=== PATIENT | female | born 1990 | race Native Hawaiian/Other Pacific Islander ===

== ENCOUNTER 2017-04-14 12:26 | Emergency (ER) | payer OTHER ==
[2017-04-14 12:47] VITALS: BP 122/83; PULSE 66; RESP 20; TEMP 98.4; O2SAT 100
--- NOTE | 2017-04-14 13:05 | C.PDOC ---
History Of Present Illness 26 year old female presents to ED with complaints of laceration to left thumb. She states she was using knife and accidentally cut tip of her finger. She is not UTD with Tetanus. She applied towel to control bleeding. Denies any numbness or limited movement to finger. Time Seen by Provider: 04/14/17 12:48 Chief Complaint (Nursing): Finger,Hand,&Wrist History Per: Patient History/Exam Limitations: no limitations Onset/Duration Of Symptoms: Sudden Onset Past Medical History Reviewed: Historical Data, Nursing Documentation, Vital Signs Vital Signs: Last Vital Signs Temp 98.4 F 04/14/17 12:40 Pulse 66 04/14/17 12:40 Resp 20 04/14/17 12:40 BP 122/83 04/14/17 12:40 Pulse Ox 100 04/14/17 13:05 - Medical History PMH: Anxiety, Depression Surgical History: No Surg Hx Family History: States: Unknown Family Hx - Social History Hx Alcohol Use: No Hx Substance Use: No - Immunization History Hx Tetanus Toxoid Vaccination: No Hx Influenza Vaccination: No Hx Pneumococcal Vaccination: No Review Of Systems Except As Marked, All Systems Reviewed And Found Negative. Skin: Positive for: Other (laceration) Physical Exam - Physical Exam Appears: Non-toxic, No Acute Distress Skin: Warm, Dry, Other (0.5cm linear angled laceration to the distal left tip of thumb fingernail and lateral nail border, nail attached and no active bleeding) Head: Atraumatic, Normacephalic Eye(s): bilateral: Normal Inspection, EOMI Neck: Normal ROM Chest: Symmetrical Respiratory: Normal Breath Sounds Extremity: Normal ROM, No Tenderness, No Deformity, No Swelling Neurological/Psych: Oriented x3, Normal Speech Gait: Steady ED Course And Treatment O2 Sat by Pulse Oximetry: 100 Medical Decision Making Medical Decision Making: Patient with small laceration to distal tip of nail plate of left thumb, no active bleeding. Suture repair not indicated. Wound cleansed. Tetanus administered. instruct on wound care. Disposition Counseled Patient/Family Regarding: Diagnosis, Need For Followup - Disposition Disposition: HOME/ ROUTINE Disposition Time: 13:03 Condition: GOOD Additional Instructions: Keep area clean and dry. May wash gently with soap and water, do not use alcohol or iodine solution. Change dressing 1-2 times daily. Return to ER if fever occurs, redness or swelling around wound, pus in the wound. Instructions: Acute Wound Care (ED) Forms: [facility] ([facility]arwanda) - POA Present On Arrival: None - Clinical Impression Clinical Impression: Laceration of finger
== END 2017-04-14 13:17 | disposition home or self-care (01) ==
LOC: C.ER 12:26
DX: S61.012A Laceration without foreign body of left thumb without damage to nail, initial encounter (principal); W26.0XXA Contact with knife, initial encounter